=== PATIENT | female | born 1935 | race Caucasian/White ===

== ENCOUNTER 2021-11-01 11:02 | Inpatient (IN) ==
[2021-11-01] MEDS: SODIUM CHLORIDE 0.9% 500 ML IV SCH ×3 (12:29→17:58)
[2021-11-01 12:53] LABS: Basophils # (auto) 0.06 K/uL (0-0.2); Basophils % (auto) 0.9 %; Eosinophils # (auto) 0.09 K/uL (0-0.50); Eosinophils % (auto) 1.3 %; Hematocrit (blood only) 26.9 % (34.1-44.9); Hemoglobin 8.6 g/dl (12.0-16.0); Immature Granulocytes # (auto) 0.02 K/uL (0.00-0.02); Immature Granulocytes % (auto) 0.3 %; Lymphocytes % (auto) 16.1 %; Mean Corpuscular Hemoglobin 30.3 pg (25.0-34.0); Mean Corpuscular Volume 94.7 fL (80.0-100.0); Mean Platelet Volume 11.4 fL (9.4-12.3); Monocytes # (auto) 0.35 K/uL (0.24-0.82); Monocytes % (auto) 5.1 %; Neutrophils # (auto) 5.21 K/uL (1.4-6.5); Neutrophils % (auto) 76.3 %; Platelet Count 213 K/uL (130-400); RDW Coefficient of Variation 13.9 % (11.5-14.5); RDW Standard Deviation 47.2 fL (36.4-46.3); Red Blood Count 2.84 M/uL (3.93-5.22); White Blood Count 6.83 K/ul (4.8-10.8)
--- NOTE | 2021-11-01 13:09 | XRay Report ---
XR chest 1V portable HISTORY: 86 years-old Female dizziness acute dizziness COMPARISON: None TECHNIQUE: AP view of the chest FINDINGS: Cardiac silhouette is upper limits of normal in size. Prior median sternotomy with cardiac valvular p rosthesis. No pneumothorax, pleural effusion, airspace consolidation or overt pulmonary edema. Mild d iffuse interstitial coarsening is likely chronic. Degenerative changes of the shoulders and spine. IMPRESSION: No acute process. ACT 112: Negative or not required by law. The above report was generated using voice recognition software. It may contain grammatical, syntax o r spelling errors. Electronically signed by: Milind Mohan M.D. 11/01/2021 1:08 PM
[2021-11-01 13:10] LABS: Prothrombin Time 10.3 Seconds (9.0-12.0)
[2021-11-01 13:27] LABS: Appearance Urine Clear (Clear); Bacteria Urine Automated 4+ (Negative); Bilirubin Urine Negative (Negative); Blood Urine Negative (Negative); Cast Urine Automated 0 /lpf (0-5); Color Urine Yellow; Epithelial Cell Urine Auto >30 /lpf (0-5); Glucose Urine UA Negative (Negative); Ketones Urine Negative (Negative); Leukocyte Esterase Urine 1+ (Negative); Nitrite Urine Negative (Negative); Protein Urine Negative (Negative); RBC Urine Automated 0-4 /hpf (0-4); Specific Gravity Urine 1.013 (1.000-1.030); Urobilinogen Urine Negative (Negative); pH Urine 5.5 (4.5-7.5)
[2021-11-01 13:39] LABS: Albumin Globulin Ratio 1.4 (0.9-2); Albumin Level 3.7 gm/dl (3.4-5.0); BUN Creatinine Ratio 29.8 (10-20); Bilirubin,Total 0.3 mg/dl (0.2-1.0); Calcium 8.9 mg/dl (8.5-10.1); Creatinine Clr Calc Pharmacy 33.8 ml/min; Est GFR (African American) 55.9 ml/min; Est GFR (Non-African American) 48.3 ml/min; Globulin 2.7 gm/dl (2.5-4.0); Magnesium 2.1 mg/dl (1.7-2.4); Phosphorus 3.3 mg/dl (2.5-4.9); Potassium 3.9 mmol/L (3.5-5.1); Total Protein 6.4 gm/dl (6.0-8.3)
--- NOTE | 2021-11-01 13:43 | Electrocardiogram Report ---
Test Reason : Blood Pressure : / mmHG Vent. Rate : 089 BPM Atrial Rate : 089 BPM P-R Int : 174 ms QRS Dur : 068 ms QT Int : 354 ms P-R-T Axes : 039 -01 026 degrees QTc Int : 430 ms Sinus rhythm with occasional Premature ventricular complexes Otherwise normal ECG No previous ECGs available Confirmed by Castro Fall ([id number]) on 11/01/2021 1:42:55 PM Referred By: Stan Moya Confirmed By:Castro Fall
[2021-11-01] MEDS ORDERED: OPTIRAY 300 100mL IV ONE (14:43)
--- NOTE | 2021-11-01 14:59 | CT Scan Report ---
CT SCAN OF THE ABDOMEN AND PELVIS WITH IV CONTRAST CLINICAL HISTORY: Hematochezia. COMPARISON STUDY: No priors. TECHNIQUE: Following the IV administration of 94 cc of Optiray 300, CT scan of the abdomen and pelvi s is performed from the lung bases to the proximal femora. Images are reviewed in the axial, sagittal , and coronal planes. IV contrast was administered without complication. A dose lowering technique wa s utilized adhering to the principles of ALARA. CT DOSE: 301.45 mGy.cm FINDINGS: Lung bases: The patient is status post midline sternotomy and mitral valve surgery. The heart is mild ly enlarged and without pericardial effusion. Fibrotic change is noted at the lung bases. There is no superimposed airspace consolidation or pleural effusion. There are scattered calcified granulomas. T here is a tiny hiatal hernia. Liver: The contrast-enhanced liver is normal in size, contour, and attenuation. There is no intrahepa tic biliary ductal dilatation. The hepatic veins and portal veins are patent. There is a 2.2 cm left lobe cyst. Gallbladder: Unremarkable. Spleen: Normal in size and attenuation. Pancreas: Unremarkable. Adrenal glands: Unremarkable. Kidneys: The contrast enhanced kidneys demonstrate cortical atrophy and are without hydronephrosis. T he kidneys enhance symmetrically. Abdominal vasculature: The abdominal aorta is normal in course and caliber noting moderate to advance d atherosclerotic calcification. Bowel: There is mild colonic diverticulosis without CT evidence of acute diverticulitis. No bowel obs truction is seen. Mild fecal retention is seen throughout the colon. The appendix is not visualized. Peritoneum: There is no intraperitoneal free air or abdominal ascites. There is a small fat-containin g umbilical hernia. Lymphadenopathy: None. Pelvic viscera: The bladder is normal as visualized. The uterus is surgically absent. No adnexal lesi on is seen. Skeletal structures: The skeletal structures are osteopenic. There is moderate to advanced lumbosacra l spondylosis. No lytic or blastic lesions are seen. IMPRESSION: 1. No acute infectious or inflammatory findings are identified in the abdomen or pelvis. 2. Mild colonic diverticulosis without CT evidence of acute diverticulitis. 3. Mild cardiomegaly. 4. Additional findings as above. ACT 112: Negative or not required by law. Electronically signed by: Terry Nicholas M.D. 11/01/2021 2:58 PM
[2021-11-01] MEDS ORDERED: PANTOprazole 80 MG in DEXTROSE 5% 100 ML IV ONE (18:23)
[2021-11-01] MEDS ORDERED: PANTOPRAZOLE BOLUS/DRIP 1 EACH IV STA (18:23)
--- NOTE | 2021-11-01 18:39 | History & Physical Report ---
Date of Service November 01, 2021 Assessment & Plan (1) GIB (gastrointestinal bleeding): Plan: Bhavani is an 86-year-old female with a past medical history of heart failure with reduced ejection fraction, hyperlipidemia, hypertension, and CVA who presents with melena consistent with upper GI bleed. Records are from [facility], attempting to obtain from reconciliation. Unavailable to CM in ER. Med list obtained from patient. GI bleed Hemoglobin 8.6 on admission, no tachycardia and BP stable Patient does endorse progressive lightheadedness/presyncope over the weekend. Improved at bedside. Trend H&H every 8 hours Continue PPI gtt. 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 Type and screen ordered - Cautious fluid, 80cc/hr whil eNPO. 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 Denies history of DM No CKD DVT prophylaxis: SCDs, no pharmacal prophylaxis in the setting of bleeding Diet: N.p.o. pending GI eval Disposition: Medical telemetry monitoring while bleeding CODE STATUS: Full code (2) HTN (hypertension): (3) Aortic insufficiency: (4) CVA (cerebral vascular accident): (5) HFrEF (heart failure with reduced ejection fraction): History of Present Illness Primary Care Provider: ANNALEE ISBELL Bhavani is an 86-year-old female with a past medical history of hypertension, CVA on Plavix, and no known prior ulcers who presents with bright red blood per rectum with progression to melena suspicious for upper GI bleed had very loose BMs. Progressively over the next few days had worsening bright red blood in her bowel movements, and then BMs because dark red then black/tarry. Today BMs very dark brown again. She has had increasing lightheadedness/dizziness. No chest pain, no chest pressure. BP has been lower than normal without taking her BP medications. No shortness of breath. No abdominal pain, no nausea, vomiting. Has had palpitations/heart racing. NO hx of problems with ulcers/PUD/GERD. She does note that she has a sensitive stomach, and was previous on aspirin and was concerned about developing ulcers on either aspirin or her Plavix. On Plaavix for a stroke in 2018. No residual stroke deficits. Medications per patient: Bumex 1mg daily KCL 20meq qd Plavix 75mg QD MTP 12,5mg BID tartrate Colesevelam 625 3x/w entresto 49-51 BID Denies any NSAID use. Colonoscopy in 2006 and 2017, some polyps removed. Otherwise normal per patient open heart surgery in 2015 for a valve replacement Medical History: Reviewed Medications: Reviewed Surgical History: Reviewed Allergies: Reviewed Social History: Tobacco use, no regular alcohol use. Denies recreational drug use Code Status: Full code Past Med/Surg History Social History Smoking Status: Former smoker Preferred Language: Finnish Feels Safe at Home: Yes Review of Systems Review of Systems: All systems reviewed & are unremarkable except as noted in Subjective Physical Exam Physical Exam: General: A&Ox3. NAD. Cooperative. HEENT: Atraumatic, normocephalic. Pupils equal and reactive to light and accommodation. Vision hearing grossly intact Pulm: CTAB A&P. -wheezes, -rales, -rhonchi. Symmetrical chest rise. No increase in work of breathing. No respiratory distress. Cardiac: RRR, systolic murmur present. Radial pulses intact and symmetrical. Abdominal: Nontender, nondistended, soft. BS present. No epigastric tenderness Extremities: Warm, dry. Lower extremity pitting edema at the ankles, at baseline per patient. Sensation soft touch intact in hands and feet without asymmetry. 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 strength, elbow flexion, hip flexion, ankle dorsiflexion/plantar flexion 5/5 bilaterally without asymmetry Results & Data Results & Data ([facility]) Vital Signs (Past 12 Hours) Vital Signs Temp Pulse Pulse Resp BP BP Pulse Ox 11/01/21 17:39 72 20 129/64 98 11/01/21 17:00 75 20 132/72 98 11/01/21 15:00 79 20 135/76 99 11/01/21 13:20 79 20 126/62 98 11/01/21 11:41 37.1 C 92 H 26 H 140/85 97 O2 Del Method 11/01/21 17:39 Room Air 11/01/21 17:00 11/01/21 15:00 Room Air 11/01/21 13:20 Room Air 11/01/21 11:41 Room Air PG Care Time/CCT Total # of Minutes Spent Total Time Spent with Patient: Total time spent is greater than 50% in coordination of care (as documented) at patient's floor/unit and/or counseling patient: Coding Level of Care Code 24979 Initial Inpt Care Lvl 2 Diagnoses GIB (gastrointestinal bleeding) K92.2 HTN (hypertension) I10 Aortic insufficiency I35.1 CVA (cerebral vascular accident) I63.9 HFrEF (heart failure with reduced ejection fraction) I50.20
[2021-11-01] MEDS ORDERED: PANTOprazole 40 MG in DEXTROSE 5% 100 ML IV SCH (18:45)
--- NOTE | 2021-11-01 21:16 | Emergency Department Note ---
Impression & Plan GIB (gastrointestinal bleeding), Anemia, Dizziness ED Provider Note NAME: TRISTEN MITCHELL AGE: 86 SEX: F ARRIVES VIA: Walk-In INFORMANT: Patient ED PROVIDER(S): Dylon Bruce MD CHIEF COMPLAINT: Dizziness, GI bleeding PLAN: Disposition: Admit MEDICAL DECISION MAKING: The patient is a pleasant 86-year-old woman with a past medical history of CVA on Plavix who presents to the emergency department accompanied by her daughter for evaluation of concern for GI bleeding where she reports having bloody maroon-colored diarrhea that began on which continued and developed into black stool yesterday with dark brown stool today with associated g eneralized weakness and lightheadedness. Patient reports she saw her primary care doctor on Monday and was instructed to follow-up on Monday if worsening or not improved. The patient reports she stopped her Plavix after her bloody stool began. She denies any fevers, cough, congestion, nausea or vomiting. On arrival the patient is in no acute distress, afebrile stable vital signs. She appears clinically dry. Her abdomen is benign. Rectal exam did not demonstrate stool, melena or bleeding. WBC and platelets within normal limits. H/H 8.6/26.9 which is decreased from 13.3/40.1 from a year ago compared in the [facility]. Chemistry without metabolic acidosis. BUN is elevated at 31 however appears similar to prior values in the [facility]. Electrolytes without significant abnormality. LFTs unremarkable. High-sensitivity troponin 4.5 within normal limits. Lipase within normal limits. UA with 4+ bacteria however appears contaminated patient denies any urinary symptoms. COVID-19 RNA, PALAK test was negative. CT of the abdomen pelvis was performed and was negative for acute process. Given the patient's H/H does appear to be significantly less than prior values though no recent for comparison we did agree to proceed with admission for further evaluation. Case was discussed with Dr. Coffman, [facility] hospitalist, who will evaluate the patient for admission. Triage Nursing notes reviewed and agree them. Prior medical records reviewed Vital Signs: reviewed and remarkable for no significant abnormalities Differential diagnosis: Diverticulosis, AVM, coagulopathy, colitis, inflammatory bowel disease, malignancy, Alison-Viveros tear, esophagitis, peptic ulcer disease, variceal bleed, gastritis, epistaxis, fissure, hemorrhoids, as well as other pathologies. ER treatment provided: See below. Diagnostics interpreted by me: ECG: Sinus rhythm with occasional PVCs, 89 bpm, no ectopy, no overt ST elevation or depression, QTC 430, QRS 68. Cardiac Monitoring: An order for continuous cardiac monitoring was placed and demonstrated sinus rhythm with occasional PVCs, 89 bpm, no ectopy. Laboratory studies: See below Imaging studies: See below Consultation(s): Dr. Coffman, [facility] hospitalist HPI: The patient is a pleasant 86-year-old woman with a past medical history of CVA on Plavix who presents to the emergency department accompanied by her daughter for evaluation of concern for GI bleeding where she reports having bloody maroon-colored diarrhea that began on which continued and deve loped into black stool yesterday with dark brown stool today with associated generalized weakness and lightheadedness. Patient reports she saw her primary care doctor on Monday and was instructed to follow-up on Monday if worsening or not improved. The patient reports she stopped her Plavix after her bloody stool began. She denies any fevers, cough, congestion, nausea or vomiting. ROS: See above HPI for pertinent positives & negatives. A total of 10 systems reviewed and were otherwise negative. VITALS:See Below PHYSICAL EXAMINATION: GENERAL: Awake, alert, well-appearing, in no distress HENT: Normocephalic, atraumatic. Oropharynx with dry mucous membranes and otherwise unremarkable.. EYES: Normal conjunctiva. Sclera non-icteric. NECK: Supple. No nuchal rigidity. FROM. No JVD. RESPIRATORY: Clear to auscultation. CARDIAC: Regular rate, normal rhythm. Extremities warm and well perfused. Pulses equal. ABDOMEN: Soft, non-distended. No tenderness to palpation. No rebound or guarding. No masses. RECTAL: No stool, melena or blood. MUSCULOSKELETAL: Chest examination reveals no tenderness. The back is symmetric al on inspection without obvious abnormality. There is no CVA tenderness to palpation. No joint edema. LOWER EXTREMITIES: Calves are equal size bilaterally and non-tender. No edema. No discoloration. NEURO: Normal sensorium. No sensory or motor deficits noted. SKIN: No rash or jaundice noted. Dylon Bruce MD Past Med/Surg History Medical History Aortic insufficiency CVA (cerebral vascular accident) HFrEF (heart failure with reduced ejection fraction) HTN (hypertension) Family History Other Family history non-contributory Social History Smoking Status: Former smoker Preferred Language: Swedish Feels Safe at Home: Yes Allergies Allergies Allergy/AdvReac Type Severity Reaction Status Date / Time clindamycin Allergy Unknown Unverified 11/01/21 20:05 erythromycin base Allergy Unknown Unverified 11/01/21 20:06 [id number] Reductase Allergy Unknown Unverified 11/01/21 20:02 Inhibitor Home Meds Home Medications Medication Instructions Recorded Confirmed Lactobacillus acidophilus 10 10,000 mmu cells PO DAILY 11/01/21 11/01/21 billion cell capsule (Probiotic) bumetanide 1 mg tablet 1 mg PO DAILY 11/01/21 11/01/21 calcium carbonate 600 mg-vitamin 1 tab PO DAILY 11/01/21 11/01/21 D3 5 mcg (200 unit) tablet clopidogrel 75 mg tablet 75 mg PO DAILY 11/01/21 11/01/21 colesevelam 625 mg tablet 625 mg PO 3XWK 11/01/21 11/01/21 fish oil-dha-epa 1,200 mg-144 1 cap PO DAILY 11/01/21 11/01/21 mg-216 mg capsule metoprolol tartrate 25 mg tablet 25 mg PO DAILY 11/01/21 11/01/21 potassium chloride 20 mEq 20 meq PO DAILY 11/01/21 11/01/21 tablet,extended release sacubitril 24 mg-valsartan 26 mg 1 tab PO BID 11/01/21 11/01/21 tablet (Entresto) vit C 250 mg-vit E 90 mg-zinc 40 1 cap PO DAILY 11/01/21 11/01/21 mg-copper 1 [id number] capsule (PreserVision AREDS-2) Results & Data (ED) Vital Signs Vital Signs - 24 hr 11/01/21 11:41 11/01/21 13:20 11/01/21 15:00 Temperature 37.1 C Temperature Source Oral Pulse Rate 92 H Pulse Rate [Left Finger] 79 79 Pulse Rhythm Regular Pulse Rhythm [Left Finger] Regular Regular Pulse Strength Normal Pulse Strength [Left Finger] Normal Normal Respiratory Rate 26 H 20 20 Respiratory Effort / Characteristics Non-Labored Non-Labored Spontaneous Non-Labored Spontaneous Respiratory Depth Normal Normal Normal Respiratory Pattern Regular Regular Regular Blood Pressure 140/85 Blood Pressure [Left Arm] 126/62 135/76 Blood Pressure Mean 103 Blood Pressure Mean [Left Arm] 83 95 Blood Pressure Position Sitting Blood Pressure Position [Left Arm] Sitting Sitting Pulse Oximetry 97 98 99 Oxygen Delivery Method Room Air Room Air Room Air Sepsis Recent Fever Within 48 Hours No Sepsis New/Unexplained Change in Mental Status N/A Sepsis Action Taken by Nursing No Action Required 11/01/21 17:00 11/01/21 17:39 Temperature Temperature Source Pulse Rate Pulse Rate [Left Finger] 75 72 Pulse Rhythm Pulse Rhythm [Left Finger] Regular Pulse Strength Pulse Strength [Left Finger] Normal Respiratory Rate 20 20 Respiratory Effort / Characteristics Non-Labored Spontaneous Respiratory Depth Normal Respiratory Pattern Regular Blood Pressure Blood Pressure [Left Arm] 132/72 129/64 Blood Pressure Mean Blood Pressure Mean [Left Arm] 92 85 Blood Pressure Position Blood Pressure Position [Left Arm] Sitting Sitting Pulse Oximetry 98 98 Oxygen Delivery Method Room Air Sepsis Recent Fever Within 48 Hours Sepsis New/Unexplained Change in Mental Status Sepsis Action Taken by Nursing Laboratory Data Attestation: I reviewed the patient's lab results. Result diagrams: 11/01/21 23:10 11/01/21 12:00 Lab Results 11/01/21 11/01/21 11/01/21 Range/Units 12:00 12:00 12:00 WBC 6.83 (4.8-10.8) K/ul RBC 2.84 L (3.93-5.22) M/uL Hgb 8.6 L (12.0-16.0) g/dl Hct 26.9 L (34.1-44.9) % MCV 94.7 (80.0-100.0) fL MCH 30.3 (25.0-34.0) pg MCHC 32.0 (32.0-36.0) g/dL RDW Std Deviation 47.2 H (36.4-46.3) fL RDW Coeff of David 13.9 (11.5-14.5) % Plt Count 213 (130-400) K/uL MPV 11.4 (9.4-12.3) fL Immature Gran % (Auto) 0.3 % Neut % (Auto) 76.3 % Lymph % (Auto) 16.1 % [place] % (Auto) 5.1 % Eos % (Auto) 1.3 % Baso % (Auto) 0.9 % Neut # (Auto) 5.21 (1.4-6.5) K/uL Lymph # (Auto) 1.10 L (1.2-3.4) K/uL [place] # (Auto) 0.35 (0.24-0.82) K/uL Eos # (Auto) 0.09 (0-0.50) K/uL Baso # (Auto) 0.06 (0-0.2) K/uL Immature Gran # (Auto) 0.02 (0.00-0.02) K/uL PT 10.3 (9.0-12.0) Seconds INR 1.0 (0.9-1.1) Sodium 137 (136-145) mmol/L Potassium 3.9 (3.5-5.1) mmol/L Chloride 106 (98-107) mmol/L Carbon Dioxide 23 (21-32) mmol/L Anion Gap 8 (3-11) BUN 31 H (6-23) mg/dl Creatinine 1.04 (0.6-1.2) mg/dl Est Cr Clr Drug Dosing 33.8 ml/min Est GFR ( Amer) 55.9 ml/min Est GFR (Non-Af Amer) 48.3 ml/min BUN/Creatinine Ratio 29.8 H (10-20) Glucose 111 H (70-99(Fasting)) mg/dl Calcium 8.9 (8.5-10.1) mg/dl Phosphorus 3.3 (2.5-4.9) mg/dl Magnesium 2.1 (1.7-2.4) mg/dl Total Bilirubin 0.3 (0.2-1.0) mg/dl AST 13 (13-39) U/L ALT 9 (7-52) U/L Alkaline Phosphatase 48 (34-104) U/L Troponin I High Sens (0-14) pg/ml Total Protein 6.4 (6.0-8.3) gm/dl Albumin 3.7 (3.4-5.0) gm/dl Globulin 2.7 (2.5-4.0) gm/dl Albumin/Globulin Ratio 1.4 (0.9-2) Lipase 43 (11-82) U/L Urine Color Urine Appearance (Clear) Urine pH (4.5-7.5) Ur Specific [place] (1.000-1.030) Urine Protein (Negative) Urine Glucose (UA) (Negative) Urine Ketones (Negative) Urine Blood (Negative) Urine Nitrite (Negative) Urine Bilirubin (Negative) Urine Urobilinogen (Negative) Ur Leukocyte Esterase (Negative) Urine WBC (Auto) (0-5) /hpf Urine RBC (Auto) (0-4) /hpf U Hyaline Cast (Auto) (0-5) /lpf U Epithel Cells (Auto) (0-5) /lpf Urine Bacteria (Auto) (Negative) SARS-CoV-2, RNA, NAAT (NEGATIVE) 11/01/21 11/01/21 11/01/21 Range/Units 12:00 12:30 13:05 WBC (4.8-10.8) K/ul RBC (3.93-5.22) M/uL Hgb (12.0-16.0) g/dl Hct (34.1-44.9) % MCV (80.0-100.0) fL MCH (25.0-34.0) pg MCHC (32.0-36.0) g/dL RDW Std Deviation (36.4-46.3) fL RDW Coeff of David (11.5-14.5) % Plt Count (130-400) K/uL MPV (9.4-12.3) fL Immature Gran % (Auto) % Neut % (Auto) % Lymph % (Auto) % [place] % (Auto) % Eos % (Auto) % Baso % (Auto) % Neut # (Auto) (1.4-6.5) K/uL Lymph # (Auto) (1.2-3.4) K/uL [place] # (Auto) (0.24-0.82) K/uL Eos # (Auto) (0-0.50) K/uL Baso # (Auto) (0-0.2) K/uL Immature Gran # (Auto) (0.00-0.02) K/uL PT (9.0-12.0) Seconds INR (0.9-1.1) Sodium (136-145) mmol/L Potassium (3.5-5.1) mmol/L Chloride (98-107) mmol/L Carbon Dioxide (21-32) mmol/L Anion Gap (3-11) BUN (6-23) mg/dl Creatinine (0.6-1.2) mg/dl Est Cr Clr Drug Dosing ml/min Est GFR ( Amer) ml/min Est GFR (Non-Af Amer) ml/min BUN/Creatinine Ratio (10-20) Glucose (70-99(Fasting)) mg/dl Calcium (8.5-10.1) mg/dl Phosphorus (2.5-4.9) mg/dl Magnesium (1.7-2.4) mg/dl Total Bilirubin (0.2-1.0) mg/dl AST (13-39) U/L ALT (7-52) U/L Alkaline Phosphatase (34-104) U/L Troponin I High Sens 4.5 (0-14) pg/ml Total Protein (6.0-8.3) gm/dl Albumin (3.4-5.0) gm/dl Globulin (2.5-4.0) gm/dl Albumin/Globulin Ratio (0.9-2) Lipase (11-82) U/L Urine Color Yellow Urine Appearance Clear (Clear) Urine pH 5.5 (4.5-7.5) Ur Specific [place] 1.013 (1.000-1.030) Urine Protein Negative (Negative) Urine Glucose (UA) Negative (Negative) Urine Ketones Negative (Negative) Urine Blood Negative (Negative) Urine Nitrite Negative (Negative) Urine Bilirubin Negative (Negative) Urine Urobilinogen Negative (Negative) Ur Leukocyte Esterase 1+ H (Negative) Urine WBC (Auto) 1-5 (0-5) /hpf Urine RBC (Auto) 0-4 (0-4) /hpf U Hyaline Cast (Auto) 0 (0-5) /lpf U Epithel Cells (Auto) >30 H (0-5) /lpf Urine Bacteria (Auto) 4+ H (Negative) SARS-CoV-2, RNA, NAAT NEGATIVE (NEGATIVE) Administered Medications Discontinued Medications Sodium Chloride (Nss) 500 mls @ 125 mls/hr IV .Q4H [facility] Stop: 12/01/21 12:14 Last Infusion: 11/01/21 19:02 Dose: 0 mls/hr Documented By: Admin: 11/01/21 17:58 Dose: Not Given Documented By: Admin: 11/01/21 17:57 Dose: Not Given Documented By: Admin: 11/01/21 12:29 Dose: 125 mls/hr Documented By: JOSSE Pantoprazole Sodium (Protonix Bolus/Drip) 0 mls @ 1 mls/hr IV ONE STA Stop: 11/01/21 18:24 Last Admin: 11/01/21 20:02 Dose: Not Given Documented By: JORGE A Pantoprazole Sodium 40 mg/ (Dextrose) 100 mls @ 20 mls/hr IV Q5H TASHA Stop: 12/01/21 18:44 Last Admin: 11/01/21 19:06 Dose: 8 mg/hr, 20 mls/hr Documented By: BURT Pantoprazole Sodium 80 mg/ (Dextrose) 120 mls @ 400 mls/hr IV NOW ONE Stop: 11/01/21 18:40 Last Infusion: 11/01/21 19:02 Dose: 0 mls/hr Documented By: Admin: 11/01/21 18:46 Dose: 400 mls/hr Documented By: BURT Ioversol (Optiray 300 100ml) 94 ml IV ONCE ONE Stop: 11/01/21 14:44 Last Admin: 11/01/21 14:44 Dose: 94 ml Documented By: NISREEN Imaging Data Radiologist's Impression: Abdomen/Pelvis CT 11/01/21 12:19 CT SCAN OF THE ABDOMEN AND PELVIS WITH IV CONTRAST CLINICAL HISTORY: Hematochezia. COMPARISON STUDY: No priors. TECHNIQUE: Following the IV administration of 94 cc of Optiray 300, CT scan of the abdomen and pelvis is performed from the lung bases to the proximal femora. Images are reviewed in the axial, sagittal, and coronal planes. IV contrast was administered without complication. A dose lowering technique was utilized adhering to the principles of ALARA. CT DOSE: 301.45 mGy.cm FINDINGS: Lung bases: The patient is status post midline sternotomy and mitral valve surgery. The heart is mildly enlarged and without pericardial effusion. Fibrotic change is noted at the lung bases. There is no superimposed airspace consolidation or pleural effusion. There are scattered calcified granulomas. There is a tiny hiatal hernia. Liver: The contrast-enhanced liver is normal in size, contour, and attenuation. There is no intrahepatic biliary ductal dilatation. The hepatic veins and portal veins are patent. There is a 2.2 cm left lobe cyst. Gallbladder: Unremarkable. Spleen: Normal in size and attenuation. Pancreas: Unremarkable. Adrenal glands: Unremarkable. Kidneys: The contrast enhanced kidneys demonstrate cortical atrophy and are without hydronephrosis. The kidneys enhance symmetrically. Abdominal vasculature: The abdominal aorta is normal in course and caliber noting moderate to advanced atherosclerotic calcification. Bowel: There is mild colonic diverticulosis without CT evidence of acute diverticulitis. No bowel obstruction is seen. Mild fecal retention is seen throughout the colon. The appendix is not visualized. Peritoneum: There is no intraperitoneal free air or abdominal ascites. There is a small fat-containing umbilical hernia. Lymphadenopathy: None. Pelvic viscera: The bladder is normal as visualized. The uterus is surgically absent. No adnexal lesion is seen. Skeletal structures: The skeletal structures are osteopenic. There is moderate to advanced lumbosacral spondylosis. No lytic or blastic lesions are seen. IMPRESSION: 1. No acute infectious or inflammatory findings are identified in the abdomen or pelvis. 2. Mild colonic diverticulosis without CT evidence of acute diverticulitis. 3. Mild cardiomegaly. 4. Additional findings as above. ACT 112: Negative or not required by law. Electronically signed by: Terry Nicholas M.D. 11/01/2021 2:58 PM Chest X-Ray 11/01/21 12:25 XR chest 1V portable HISTORY: 86 years-old Female dizziness acute dizziness COMPARISON: None TECHNIQUE: AP view of the chest FINDINGS: Cardiac silhouette is upper limits of normal in size. Prior median sternotomy with cardiac valvular prosthesis. No pneumothorax, pleural effusion, airspace consolidation or overt pulmonary edema. Mild diffuse interstitial coarsening is likely chronic. Degenerative changes of the shoulders and spine. IMPRESSION: No acute process. ACT 112: Negative or not required by law. The above report was generated using voice recognition software. It may contain grammatical, syntax or spelling errors. Electronically signed by: Milind Mohan M.D. 11/01/2021 1:08 PM Discharge Plan Visit Data Chief Complaint: Rectal Bleed Stated Complaint: RECTAL BLEEDING, DIZZINESS, REF BY DR ED Provider: Dylon Bruce Discharge Problem: GIB (gastrointestinal bleeding), Anemia, Dizziness Patient Disposition: Admitted As Inpatient Discharge Instructions Interventions: ED Discharge Assessment Last Done: 11/01/21 22:02
[2021-11-01] MEDS ORDERED: ONDANSETRON INJ 2 MG/ML 2 ML VIAL IV PRN (22:41)
[2021-11-01 23:23] LABS: Hematocrit (blood only) 25.1 % (34.1-44.9); Hemoglobin 7.9 g/dl (12.0-16.0)
[2021-11-02] MEDS: PANTOprazole 40 MG in DEXTROSE 5% 100 ML IV SCH ×5 (00:57→21:20)
[2021-11-02] MEDS: NSS + 20MEQ KCL 20 MEQ/1,000 ML BAG IV SCH ×2 (00:57→20:52)
[2021-11-02 06:28] LABS: Hematocrit (blood only) 21.2 % (34.1-44.9); Hemoglobin 6.8 g/dl (12.0-16.0); Mean Corpuscular Hemoglobin 30.1 pg (25.0-34.0); Mean Corpuscular Hgb Conc 32.1 g/dL (32.0-36.0); Mean Corpuscular Volume 93.8 fL (80.0-100.0); Mean Platelet Volume 10.9 fL (9.4-12.3); Platelet Count 165 K/uL (130-400); RDW Coefficient of Variation 14.1 % (11.5-14.5); RDW Standard Deviation 47.7 fL (36.4-46.3); Red Blood Count 2.26 M/uL (3.93-5.22); White Blood Count 5.11 K/ul (4.8-10.8)
[2021-11-02 06:31] LABS: Calcium 7.7 mg/dl (8.5-10.1); Creatinine Clr Calc Pharmacy 36.6 ml/min; Est GFR (African American) 61.6 ml/min; Est GFR (Non-African American) 53.2 ml/min; Potassium 4.2 mmol/L (3.5-5.1)
[2021-11-02 06:39] LABS: Basophils # (auto) 0.04 K/uL (0-0.2); Basophils % (auto) 0.8 %; Eosinophils # (auto) 0.19 K/uL (0-0.50); Eosinophils % (auto) 3.7 %; Immature Granulocytes # (auto) 0.02 K/uL (0.00-0.02); Immature Granulocytes % (auto) 0.4 %; Lymphocytes # (auto) 1.15 K/uL (1.2-3.4); Lymphocytes % (auto) 22.5 %; Monocytes # (auto) 0.27 K/uL (0.24-0.82); Monocytes % (auto) 5.3 %; Neutrophils # (auto) 3.44 K/uL (1.4-6.5); Neutrophils % (auto) 67.3 %; RBC Morphology Unremarkable
[2021-11-02] MEDS ORDERED: SODIUM CHLORIDE 0.9% 1000ML 500 ML IV ONE (07:12)
--- NOTE | 2021-11-02 09:40 | Gastrointestinal Consultation ---
Date of Consultation November 02, 2021 Assessment & Plan (1) GIB (gastrointestinal bleeding): Discussed case with Dr. Saravia who advised on plan. - Will set the patient up for EGD for today to evaluate and assess. - continue protonix drip. - keep NPO - further recommendations to follow after EGD. Supervising Physician Co-Signing Physician Notes I personally evaluated the patient and agree with the findings as documented by FABY Hernandez Exam: Constitutional: WD/WN, vitals as above General: EOM intact bilaterally Neck: normal visual inspection Respiratory: normal respiratory effort, lungs clear to auscultation Cardiovascular: RRR, no murmur, no edema Gastrointestinal: abdomennormal to inspection, nondistended, soft, nontender, no hepatosplenomegaly Musculoskeletal: no cyanosis, head normal to inspection Skin: no rashes, warm and dry Neurologic: moves all extremities Psychiatric: A and O x3, euthymic affect Proceed with EGD. risks/benefits and procedure discussed with patient, who agrees to proceed History of Present Illness Reason for Consultation: GI bleed Requesting Physician: Dr. Alexander Navas Attending Physician: Margarito Mcneill MD History of Present Illness Patient is an 86 year old female with a past medical history of hypertension, CVA 2018 on Plavix who presented to ED yesterday with complaint of melena. She admits that her symptoms started 5 days ago when she noticed a change in her bowels which started to look maroon in nature. At that point she stopped her plavix as she was worried about bleeding. Over the next few days her stools bec lisa black and she admits to having nocturnal bowel movements which is unusual for her. She tells me stools are still very dark. She admits what brought her to the ED was that she was getting progressively more weak. Hgb on admission was 7.9 and fell to 6.8 today. She had unremarkable CT A/P. she admit to heartburn as an outpatient but tells me this is infrequent. uses tums / gas x as needed which controls symptoms. she denie sany nsaid use. Patient denies any current issues with nausea, vomiting, dysphagia, abdominal pain, unintentional weight loss. She typically follows with [facility] as an outpatient for GI care, but she admits she has not had an EGD since 2006 which per patient shown gastritis. She admits last colonoscopy was in 2017 and she did have polyps but is not sure of what type. Procedure were last done in [place] per patient. Allergies Allergy/AdvReac Type Severity Reaction Status Date / Time clindamycin Allergy Unknown Unverified 11/01/21 20:05 erythromycin base Allergy Unknown Unverified 11/01/21 20:06 [id number]-YOA-BxS Reductase Allergy Unknown Unverified 11/01/21 20:02 Inhibitor Home Medications Medication Instructions Recorded Confirmed Type Lactobacillus acidophilus 10 10,000 mmu cells PO DAILY 11/01/21 11/01/21 History billion cell capsule (Probiotic) bumetanide 1 mg tablet 1 mg PO DAILY 11/01/21 11/01/21 History calcium carbonate 600 mg-vitamin 1 tab PO DAILY 11/01/21 11/01/21 History D3 5 mcg (200 unit) tablet clopidogrel 75 mg tablet 75 mg PO DAILY 11/01/21 11/01/21 History colesevelam 625 mg tablet 625 mg PO 3XWK 11/01/21 11/01/21 History fish oil-dha-epa 1,200 mg-144 1 cap PO DAILY 11/01/21 11/01/21 History mg-216 mg capsule metoprolol tartrate 25 mg tablet 25 mg PO DAILY 11/01/21 11/01/21 History potassium chloride 20 mEq 20 meq PO DAILY 11/01/21 11/01/21 History tablet,extended release sacubitril 24 mg-valsartan 26 mg 1 tab PO BID 11/01/21 11/01/21 History tablet (Entresto) vit C 250 mg-vit E 90 mg-zinc 40 1 cap PO DAILY 11/01/21 11/01/21 History mg-copper 1 [id number] capsule (PreserVision AREDS-2) Patient History Medical History Aortic insufficiency CVA (cerebral vascular accident) HFrEF (heart failure with reduced ejection fraction) HTN (hypertension) Family History Other Family history non-contributory Social History Smoking Status: Never smoker Cigarettes Per Day: socially when she was younger per her report; Second Hand Exposure: Yes; Do You Dip or Chew Tobacco: No; Tobacco Cessation Education Requested by Patient: Yes Hx Alcohol Use: No Hx Substance Use: No Preferred Language: Hong Konger Communication Ability: Effective Pantry Goods Maker Required: No Beliefs That Will Affect Care: Rastafari Current Living Situation: Alone and Family Other Information That Helps Us Care for You: No Feels Safe at Home: Yes Safety Concerns: Feels Safe At This Time Assistive Devices: Oxygen - Continuous and Walker Assistive Devices Comment: tatianna Review of Systems Review of Systems: All systems reviewed & are unremarkable except as noted in HPI & below Constitutional: + fatigue and + weakness Neurologic: + unsteadiness and + generalized weakness Physical Exam Constitutional: WD/WN, vitals as above Respiratory: normal respiratory effort, lungs clear to auscultation Cardiovascular: RRR, no murmur, no edema Gastrointestinal (Abdomen): normal bowel sounds, soft, nontender, no hepatosplenomegaly Skin: no rashes, warm and dry Psychiatric: Orientation: alert and oriented x 3 Affect: euthymic affect Results & Data ([facility]) Vital Signs (Past 12 Hours) Vital Signs Temp Pulse Pulse Resp BP BP Pulse Ox 11/02/21 03:40 75 16 95/53 L 95 11/02/21 07:00 36.6 C 74 18 97/63 L 100 11/02/21 07:09 70 11/01/21 23:05 100 H 11/01/21 23:05 36.8 C 87 18 103/52 L 97 11/02/21 03:07 36.4 C L 80 18 68/55 L 98 11/01/21 22:00 79 15 98 11/01/21 22:00 130/63 11/01/21 22:02 O2 Del Method 11/02/21 03:40 Room Air 11/02/21 07:00 Room Air 11/02/21 07:09 11/01/21 23:05 11/01/21 23:05 Room Air 11/02/21 03:07 Room Air 11/01/21 22:00 Room Air 11/01/21 22:00 11/01/21 22:02 Room Air Diagnostic Findings CT SCAN OF THE ABDOMEN AND PELVIS WITH IV CONTRAST 11/01/21 CLINICAL HISTORY: Hematochezia. COMPARISON STUDY: No priors. TECHNIQUE: Following the IV administration of 94 cc of Optiray 300, CT scan of the abdomen and pelvis is performed from the lung bases to the proximal femora. Images are reviewed in the axial, sagittal, and coronal planes. IV contrast was administered without complication. A dose lowering technique was utilized adhering to the principles of ALARA. CT DOSE: 301.45 mGy.cm FINDINGS: Lung bases: The patient is status post midline sternotomy and mitral valve surgery. The heart is mildly enlarged and without pericardial effusion. Fibrotic change is noted at the lung bases. There is no superimposed airspace con solidation or pleural effusion. There are scattered calcified granulomas. There is a tiny hiatal hernia. Liver: The contrast-enhanced liver is normal in size, contour, and attenuation. There is no intrahepatic biliary ductal dilatation. The hepatic veins and portal veins are patent. There is a 2.2 cm left lobe cyst. Gallbladder: Unremarkable. Spleen: Normal in size and attenuation. Pancreas: Unremarkable. Adrenal glands: Unremarkable. Kidneys: The contrast enhanced kidneys demonstrate cortical atrophy and are without hydronephrosis. The kidneys enhance symmetrically. Abdominal vasculature: The abdominal aorta is normal in course and caliber noting moderate to advanced atherosclerotic calcification. Bowel: There is mild colonic diverticulosis without CT evidence of acute diverticulitis. No bowel obstruction is seen. Mild fecal retention is seen throughout the colon. The appendix is not visualized. Peritoneum: There is no intraperitoneal free air or abdominal ascites. There is a small fat-containing umbilical hernia. Lymphadenopathy: None. Pelvic viscera: The bladder is normal as visualized. The uterus is surgically absent. No adnexal lesion is seen. Skeletal structures: The skeletal structures are osteopenic. There is moderate to advanced lumbosacral spondylosis. No lytic or blastic lesions are seen. IMPRESSION: 1. No acute infectious or inflammatory findings are identified in the abdomen or pelvis. 2. Mild colonic diverticulosis without CT evidence of acute diverticulitis. 3. Mild cardiomegaly. 4. Additional findings as above. PG Care Time/CCT Total # of Minutes Spent Total Time Spent with Patient: Total time spent is greater than 50% in coordination of care (as documented) at patient's floor/unit and/or counseling patient: Coding Level of Care Code 31324 Initial Inpt Care Lvl 3 Diagnoses GIB (gastrointestinal bleeding) K92.2
[2021-11-02] MEDS ORDERED: FUROSEMIDE INJ 20 MG/2 ML VIAL IV ONE ×2 (11:02→15:52)
[2021-11-02] MEDS ORDERED: SODIUM CHLORIDE 0.9% 250 ML IV PRN ×2 (11:02→11:49)
[2021-11-02 11:25] LABS: Adenovirus F 40/41 PCR Not Detected (NotDetected); Astrovirus PCR Not Detected (NotDetected); Campylobacter PCR Not Detected (NotDetected); Clostridium diff Toxin A/B PCR Not Detected (NotDetected); Cryptosporidium PCR Not Detected (NotDetected); Cyclospora cayetanensis PCR Not Detected (NotDetected); Entamoeba histolytica PCR Not Detected (NotDetected); Enteroaggregative E.coli(EAEC) Not Detected (NotDetected); Enteropathogenic E.coli (EPEC) Not Detected (NotDetected); Enterotoxigenic E.coli (ETEC) Not Detected (NotDetected); Giardia lamblia PCR Not Detected (NotDetected); Norovirus GI/GII PCR Not Detected (NotDetected); Plesiomonas shigelloides PCR Not Detected (NotDetected); Rotavirus A PCR Not Detected (NotDetected); Salmonella PCR Not Detected (NotDetected); Sapovirus PCR Not Detected (NotDetected); Shiga-like Toxin E.coli (STEC) Not Detected (NotDetected); Shigella/Enteroinvasive E.coli Not Detected (NotDetected); Vibrio cholerae PCR Not Detected (NotDetected); Vibrio species PCR Not Detected (NotDetected); Yersinia enterocolitica PCR Not Detected (NotDetected)
--- NOTE | 2021-11-02 14:17 | Anesthesiology Consultation ---
Date of Service November 02, 2021 Assessment & Plan Chart Review Chart Review: Acceptable Risk for Surgery Has first of 2 units of pRBCs running Consults Requested none ASA ASA3 Proposed Anesthesia Anesthesia Type: MAC Risk / Benefits Reviewed With: PT / POA / Parent / Guardian, Accepts Plan and Informed Consent Obtained History Surgery Operation Date: 11/02/21 16:15 Proposed Procedures p Esophagogastroduodenoscopy Dr. Saravia - Kalen Saravia MD Height/Weight Height: 5 ft 1 in Weight: 67.1 kg Allergies Allergy/AdvReac Type Severity Reaction Status Date / Time clindamycin Allergy Unknown Unverified 11/01/21 20:05 erythromycin base Allergy Unknown Unverified 11/01/21 20:06 Cueaoxa-ZDB-NfY Reductase Allergy Unknown Unverified 11/01/21 20:02 Inhibitor Medications Home Medications Medication Instructions Recorded Confirmed Last Taken Lactobacillus acidophilus 10 10,000 mmu cells PO DAILY 11/01/21 11/01/21 Unknown billion cell capsule (Probiotic) bumetanide 1 mg tablet 1 mg PO DAILY 11/01/21 11/01/21 Unknown calcium carbonate 600 mg-vitamin 1 tab PO DAILY 11/01/21 11/01/21 Unknown D3 5 mcg (200 unit) tablet clopidogrel 75 mg tablet 75 mg PO DAILY 11/01/21 11/01/21 Unknown colesevelam 625 mg tablet 625 mg PO 3XWK 11/01/21 11/01/21 Unknown fish oil-dha-epa 1,200 mg-144 1 cap PO DAILY 11/01/21 11/01/21 Unknown mg-216 mg capsule metoprolol tartrate 25 mg tablet 25 mg PO DAILY 11/01/21 11/01/21 Unknown potassium chloride 20 mEq 20 meq PO DAILY 11/01/21 11/01/21 Unknown tablet,extended release sacubitril 24 mg-valsartan 26 mg 1 tab PO BID 11/01/21 11/01/21 Unknown tablet (Entresto) vit C 250 mg-vit E 90 mg-zinc 40 1 cap PO DAILY 11/01/21 11/01/21 Unknown mg-copper 1 [id number] capsule (PreserVision AREDS-2) Active Medications Generic Name Dose Route Start Last Admin Trade Name Freq PRN Reason Stop Dose Admin Pantoprazole Sodium 40 mg/ 100 mls @ 20 mls/hr 11/02/21 00:00 11/02/21 10:26 Dextrose IV 12/02/21 00:00 8 mg/hr Q5H TASHA 20 mls/hr Administration 8 MG/HR Potassium Chloride/Sodium Chloride 20 meq in 1,000 mls @ 80 mls/hr 11/01/21 23:15 11/02/21 13:44 Normal Saline W/20 Meq Kcl IV 12/01/21 23:14 Infused .[id number] TASHA Infusion NPO Date Last Intake of Fluids: 11/01/21 Time Last Intake of Fluids: 23:59 Date Last Intake of Solids: 11/01/21 Time Last Intake of Solids: 23:59 Past Medical History Medical History Aortic insufficiency CVA (cerebral vascular accident) HFrEF (heart failure with reduced ejection fraction) HTN (hypertension) Exercise / Class Metabolic Activity III < 4 Walking/Shop/Light housework Past Family History Family History Other Family history non-contributory Past Anesthesia History No Hx of Anesthesia Complications and No Family Hx of Anesthesia Complications History of PONV No Hx of PONV and History of PONV Social History Smoking Status: Never smoker tobacco type: cigarettes and e-cigarettes Smoking cigarettes per day: socially when she was younger per her report Do You Dip or Chew Tobacco: No Hx Alcohol Use: No alcohol intake frequency: 0-2 drinks per day Hx Substance Use: No substance use type: does not use Last Used Substance Other:: none Review of Systems Constitutional: as per Subjective / HPI and + fatigue Ear, Nose, Mouth, Throat: as per Subjective / HPI Respiratory: + dyspnea on exertion Cardiovascular: as per Subjective / HPI Gastrointestinal: + diarrhea/loose stools, + blood in stools and + melena Genitourinary (Female): as per Subjective / HPI Musculoskeletal: as per Subjective / HPI Integumentary: as per Subjective / HPI Neurologic: as per Subjective / HPI Psychiatric: as per Subjective / HPI Endocrine: as per Subjective / HPI blood in stool/melena Allergy / Immunological: as per Subjective / HPI Physical Exam Vital Signs Last Vital Signs Temp 36.4 C L 11/02/21 13:15 Pulse 82 11/02/21 13:15 Resp 16 11/02/21 13:15 BP 142/85 H 11/02/21 13:15 Pulse Ox 100 11/02/21 07:00 O2 Del Method 11/02/21 07:00 ENMT Mouth: no TMJ abnormality Thyromental Distance: > or= 3.5 Finger Breadths Mallampati Class: II Neck normal visual inspection Respiratory normal respiratory effort Cardiovascular Rate/Rhythm: regular rate and regular rhythm Musculoskeletal Spine: normal cervical ROM Extremities: extremities normal to inspection Neurologic moves all extremities Psychiatric Orientation: alert and oriented x 3 Testing Laboratory Results 11/02/21 05:55 11/02/21 05:55 PT 10.3 Seconds (9.0-12.0) 11/01/21 12:00 INR 1.0 (0.9-1.1) 11/01/21 12:00 Urine Color Yellow 11/01/21 13:05 Urine Appearance Clear (Clear) 11/01/21 13:05 Urine pH 5.5 (4.5-7.5) 11/01/21 13:05 Ur Specific [place] 1.013 (1.000-1.030) 11/01/21 13:05 Urine Protein Negative (Negative) 11/01/21 13:05 Urine Glucose (UA) Negative (Negative) 11/01/21 13:05 Urine Ketones Negative (Negative) 11/01/21 13:05 Urine Nitrite Negative (Negative) 11/01/21 13:05 Ur Leukocyte Esterase 1+ (Negative) H 11/01/21 13:05 Urine WBC (Auto) 1-5 /hpf (0-5) 11/01/21 13:05 Urine RBC (Auto) 0-4 /hpf (0-4) 11/01/21 13:05 U Hyaline Cast (Auto) 0 /lpf (0-5) 11/01/21 13:05 U Epithel Cells (Auto) >30 /lpf (0-5) H 11/01/21 13:05 Urine Bacteria (Auto) 4+ (Negative) H 11/01/21 13:05 Blood Type O Positive 11/01/21 19:15 Antibody Screen NEGATIVE 11/01/21 19:15 11/01/21 13:05 Urine Culture - Preliminary Urine,Clean Catch Gram negative bacilli
[2021-11-02] MEDS ORDERED: LIDOCAINE 2% MPF LOCAL 5 ML VIAL INFIL ONE (14:26)
[2021-11-02] MEDS ORDERED: PROPOFOL IV EMULSION 10 MG/ML 20 ML VIAL IV ONE (14:26)
--- NOTE | 2021-11-02 15:25 | GI REPORT ---
Patient Name: Bhavani Vizcaino Procedure Date: 11/02/2021 2:32 PM Date of : 1935 Admit Type: Inpatient Age: 86 Gender: Female Attending MD: Kalen Saravia MD Procedure: Upper GI endoscopy Providers: Kalen Saravia MD Referring MD: Margarito Mcneill Indications: Hematochezia Medicines: Monitored Anesthesia Care Complications: No immediate complications. Estimated blood loss: None. Estimated Blood Loss: Estimated blood loss: none. Procedure: Pre-Anesthesia Assessment: - Prior Anticoagulants: The patient has taken no previous anticoagulant or antiplatelet agents. - ASA Grade Assessment: II - A patient with mild systemic disease. After obtaining informed consent, the endoscope was passed under direct vision. Throughout the procedure, the patient's blood pressure, pulse, and oxygen saturations were monitored continuously. The Endoscope was introduced through the mouth, and advanced to the second part of duodenum. The upper GI endoscopy was accomplished without difficulty. The patient tolerated the procedure well. Findings: Mildly severe esophagitis with no bleeding was found in the distal esophagus. The entire examined stomach was normal. The duodenal bulb and second portion of the duodenum were normal. A small hiatal hernia was present. Impression: - Mildly severe reflux esophagitis. - Normal stomach. - Normal duodenal bulb and second portion of the duodenum. - No specimens collected. Recommendation: - Return patient to hospital [facility] for ongoing care. - Clear liquid diet today. -suspect a diverticular bleed, these usually resolve on their own, would monitor supportively at this time and trend H/H, avoid NSAIDS -will continue to follow along with you Kalen Saravia MD 11/02/2021 3:24:32 PM This report has been signed electronically. Note Initiated On: 11/02/2021 2:32 PM Number of Addenda: 0 I attest to the content of the Intraoperative Record and orders documented therein, exceptions below {[id number]}
--- NOTE | 2021-11-02 16:06 | Anesthesiology Progress Note ---
Date of Service November 02, 2021 Anesthesia Post Procedure Vital Signs Vital Signs: Temp Pulse Pulse Resp BP BP Pulse Ox 11/02/21 15:37 97.9 F 79 18 98/62 L 99 11/02/21 15:19 76 18 98/51 L 95 11/02/21 14:50 97.7 F 82 16 133/82 11/02/21 14:20 99.0 F 87 16 133/85 11/02/21 14:02 98.1 F 80 16 134/76 99 11/02/21 13:15 97.5 F L 82 16 142/85 H 11/02/21 03:40 75 16 95/53 L 95 11/02/21 07:00 97.9 F 74 18 97/63 L 100 11/02/21 07:09 70 11/01/21 23:05 100 H 11/01/21 23:05 98.2 F 87 18 103/52 L 97 11/02/21 03:07 97.5 F L 80 18 68/55 L 98 11/01/21 22:00 79 15 98 11/01/21 22:00 130/63 11/01/21 22:02 11/01/21 21:30 79 12 99 11/01/21 21:00 77 12 99 11/01/21 21:00 115/61 11/01/21 20:30 74 12 99 11/01/21 20:00 72 14 122/56 L 100 11/01/21 17:39 72 20 129/64 98 11/01/21 17:00 75 20 132/72 98 O2 Del Method 11/02/21 15:37 11/02/21 15:19 Room Air 11/02/21 14:50 11/02/21 14:20 11/02/21 14:02 11/02/21 13:15 11/02/21 03:40 Room Air 11/02/21 07:00 Room Air 11/02/21 07:09 11/01/21 23:05 11/01/21 23:05 Room Air 11/02/21 03:07 Room Air 11/01/21 22:00 Room Air 11/01/21 22:00 11/01/21 22:02 Room Air 11/01/21 21:30 Room Air 11/01/21 21:00 Room Air 11/01/21 21:00 11/01/21 20:30 Room Air 11/01/21 20:00 Room Air 11/01/21 17:39 Room Air 11/01/21 17:00 Transfer of Care Handoff Completed per policy Notes Mental Status: alert / awake / arousable and participated in evaluation Patient Amnestic to Procedure: Yes Nausea / Vomiting: adequately controlled Pain: adequately controlled Airway Patency, RR, SpO2: stable & adequate BP & HR: stable & adequate Hydration State: stable & adequate Anesthetic Complications: no major complications apparent and Pt Satisfied with anesthetic care
--- NOTE | 2021-11-02 17:11 | Hospitalist Progress Note ---
Date of Service November 02, 2021 Assessment & Plan (1) GIB (gastrointestinal bleeding): Plan: Bhavani is an 86-year-old female with a past medical history of heart failure with reduced ejection fraction, hyperlipidemia, hypertension, and CVA who presents with melena consistent with upper GI bleed. Records are from [facility] system, attempting to obtain from reconciliation. Unavailable to CM in ER. Med list obtained from patient. GI bleed Transfused units packed red blood cells plan for upper endoscopy today Continue PPI gtt. With melena LENS GRINDER ROUGH GI consulted, recommend EGD Heart failure with reduced ejection fraction Patient on Entresto LENS GRINDER ROUGH Echo not available in system, attempt to obtain records Patient is not volume overloaded, continue to hold Bumex Metoprolol 12.5 mg twice daily held to prevent beta-hawa withdrawal, hold for blood pressure less than 100 Plavix temporarily held in the setting of bleeding History of CVA Plavix held for bleeding No residual deficits per patient. Denies history of DM No CKD DVT prophylaxis: SCDs, no pharmacal prophylaxis in the setting of bleeding Diet: N.p.o. pending GI eval Disposition: Medical telemetry monitoring while bleeding CODE STATUS: Full code (2) HTN (hypertension): (3) Aortic insufficiency: (4) CVA (cerebral vascular accident): (5) HFrEF (heart failure with reduced ejection fraction): Admission and Anticipated Discharge Date Admission Date: November 01, 2021 Subjective pt is pale and weak, no further melena but did have some earlier, no abdominal pain nausea or vomiting Review of Systems Review of Systems: Mild distress and moderate fatigue no headache, no visual changes no speech or swallowing issues no chest pain, pressure or palpitations no shortness of breath, cough or wheezes no abdominal pain, nausea or vomiting, melena no dysuria, hematuria or frequency no focal joint pain or swelling no back pain, CVA tenderness or radicular pain no bruising, bleeding or rashes no focal signs of weakness or numbness or altered sensation no complaints of anxiety or depression.. Physical Exam Physical Exam: The patient appeared well nourished and normally developed. She looked and appeared obviously pale Vital signs as documented. Head exam is normocephalic atraumatic Neck is without JVD, thyromegaly, or carotid bruits. Lungs are clear to auscultation, no focal loss of breath sounds Cardiac exam, Rhythm is regular.. No murmurs, rubs or gallops. Abdominal exam reveals normal bowel sounds, soft non tender, no masses Extremities are nonedematous and both pedal pulses are present Neurologic exam is alert and oriented, no focal loss of strength or sensation Skin is without bruises or rashes Psychologically is without concerns for anxiety or depression.. Results & Data Results & Data ([facility]) Vital Signs (Past 12 Hours) Vital Signs Temp Pulse Pulse Resp BP BP Pulse Ox 11/02/21 16:43 97.3 F L 81 16 157/76 H 11/02/21 15:48 68 16 121/71 98 11/02/21 15:37 97.9 F 79 18 98/62 L 99 11/02/21 15:19 76 18 98/51 L 95 11/02/21 14:50 97.7 F 82 16 133/82 11/02/21 14:20 99.0 F 87 16 133/85 11/02/21 14:02 98.1 F 80 16 134/76 99 11/02/21 13:15 97.5 F L 82 16 142/85 H 11/02/21 07:00 97.9 F 74 18 97/63 L 100 11/02/21 07:09 70 O2 Del Method 11/02/21 16:43 11/02/21 15:48 Room Air 11/02/21 15:37 11/02/21 15:19 Room Air 11/02/21 14:50 11/02/21 14:20 11/02/21 14:02 11/02/21 13:15 11/02/21 07:00 Room Air 11/02/21 07:09 PG Care Time/CCT Total # of Minutes Spent Total Time Spent with Patient: Total time spent is greater than 50% in coordination of care (as documented) at patient's floor/unit and/or counseling patient: Coding Level of Care Code 67089 Subseq Hosp Care Lvl 3 Diagnoses GIB (gastrointestinal bleeding) K92.2 HTN (hypertension) I10 Aortic insufficiency I35.1 CVA (cerebral vascular accident) I63.9 HFrEF (heart failure with reduced ejection fraction) I50.20
[2021-11-03] MEDS: PANTOprazole 40 MG in DEXTROSE 5% 100 ML IV SCH ×3 (02:30→11:02)
[2021-11-03] MEDS: NSS + 20MEQ KCL 20 MEQ/1,000 ML BAG IV SCH ×2 (08:06→14:42)
[2021-11-03 08:19] LABS: BUN Creatinine Ratio 21.3 (10-20); Calcium 7.4 mg/dl (8.5-10.1); Creatinine Clr Calc Pharmacy 37.1 ml/min; Est GFR (African American) 63.2 ml/min; Est GFR (Non-African American) 54.5 ml/min; Potassium 3.9 mmol/L (3.5-5.1)
[2021-11-03 08:30] LABS: Hemoglobin 9.8 g/dl (12.0-16.0); Mean Corpuscular Hemoglobin 31.8 pg (25.0-34.0); Mean Corpuscular Hgb Conc 33.8 g/dL (32.0-36.0); Mean Corpuscular Volume 94.2 fL (80.0-100.0); Mean Platelet Volume 10.7 fL (9.4-12.3); Platelet Count 158 K/uL (130-400); RDW Coefficient of Variation 14.5 % (11.5-14.5); Red Blood Count 3.08 M/uL (3.93-5.22); White Blood Count 4.41 K/ul (4.8-10.8)
--- NOTE | 2021-11-03 09:33 | Communication Note ---
Date of Service: November 03, 2021 no further dark stools. no bright red blood per rectum. hgb improved from 6.8 to 9.8. she otherwise feels well from GI standpoint. she typically follows with [facility] for GI care and can follow up with them as an outpatient.
[2021-11-03] MEDS ORDERED: PANTOprazole 40 MG TAB PO SCH (11:00)
--- NOTE | 2021-11-03 20:32 | Discharge Summary ---
Date of Service November 03, 2021 Admission HPI Per Admitting Provider Bhavani is an 86-year-old female with a past medical history of hypertension, CVA on Plavix, and no known prior ulcers who presents with bright red blood per rectum with progression to melena suspicious for upper GI bleed had very loose BMs. Progressively over the next few days had worsening bright red blood in her bowel movements, and then BMs because dark red then black/tarry. Today BMs very dark brown again. She has had increasing lightheadedness/dizziness. No chest pain, no chest pressure. BP has been lower than normal without taking her BP medications. No shortness of breath. No abdominal pain, no nausea, vomiting. Has had palpitations/heart racing. NO hx of problems with ulcers/PUD/GERD. She does note that she has a sensitive stomach, and was previous on aspirin and was concerned about developing ulcers on either aspirin or her Plavix. On Plaavix for a stroke in 2018. No residual stroke deficits. Medications per patient: Bumex 1mg daily KCL 20meq qd Plavix 75mg QD MTP 12,5mg BID tartrate Colesevelam 625 3x/w entresto 49-51 BID Denies any NSAID use. Colonoscopy in 2006 and 2017, some polyps removed. Otherwise normal per patient open heart surgery in 2015 for a valve replacement Medical History: Reviewed Medications: Reviewed Surgical History: Reviewed Allergies: Reviewed Social History: Tobacco use, no regular alcohol use. Denies recreational drug use Code Status: Full code Principal Diagnosis Acute blood loss anemia status post 2 units packed red blood cells GI bleed suspect lower GI bleed Diascopy negative for active upper GI bleeding Discharge Exam The patient appeared stable Vital signs as documented. Neurologic exam is alert and oriented, no focal loss of strength or sensation Skin is without bruises or rashes color is much better Psychologically is without concerns for anxiety or depression. Discharge Data Allergies Allergy/AdvReac Type Severity Reaction Status Date / Time clindamycin Allergy Unknown Unverified 11/01/21 20:05 erythromycin base Allergy Unknown Unverified 11/01/21 20:06 [id number] Reductase Allergy Unknown Unverified 11/01/21 20:02 Inhibitor Consultations 11/01/21 18:23 ED Decision to Admit Stat 11/01/21 22:41 Consult Gastroenterology Routine Procedures Performed Operation Date: 11/02/21 16:15 Actual Procedures p Esophagogastroduodenoscopy - Kalen Saravia MD Ordered Studies 11/01/21 12:19 CT abd pelvis IV con only Stat Hospital Course (1) GIB (gastrointestinal bleeding): Bhavani is an 86-year-old female with a past medical history of heart failure with reduced ejection fraction, hyperlipidemia, hypertension, and CVA who presents with melena consistent with upper GI bleed. Records are from [facility], attempting to obtain from reconciliation. Unavailable to CM in ER. Med list obtained from patient. GI bleed Transfused units packed red blood cells plan for upper endoscopy 11/02/2021 No active source of bleeding seen no upper endoscopic findings of active bleeding suspect diverticular bleed which should be self-contained no further need for PPI Heart failure with reduced ejection fraction We will resume Entresto and Bumex Metoprolol continue metoprolol. Plavix recommend to start 1 week after symptoms began which will be 05 November History of CVA Plavix will resume November 05 No residual deficits per patient. Denies history of DM No CKD CODE STATUS: Full code (2) HTN (hypertension): (3) Aortic insufficiency: (4) CVA (cerebral vascular accident): (5) HFrEF (heart failure with reduced ejection fraction): Total Time Total Time Spent Total Time Spent (In Minutes): It required greater than 30 minutes to prepare this patient for discharge Discharge Plan Discharge Items Patient Disposition: Home - Self-Care Reason For Visit: GIB Discharge Diagnosis: lower gi bleed Activity: Resume your previous activity Non-emergency contact: Primary Care Provider Call non-emergency contact if: your symptoms worsen Follow-up/Referrals: Kailee Gatica MD [Primary Care Provider] - 11/11/21 1:50 pm (Appointment with MARY Buckley [id number] [place] [address]) Diet: Low Sodium (2gm) Addtl Attending Provider Instructions: please have a good diet and hydration, consider a muyltiple vitamin a day follow up with your primary care doctor in one week and consider follow up wiht GI medicine if needed restart your plavix on 11/05/21 Pending Studies at Discharge: No Stand-Alone Forms: My [facility] [employer], Smoking Cessation Medications and DC Order Prescriptions: Continued bumetanide 1 mg tablet 1 mg PO DAILY potassium chloride 20 mEq tablet extended release 20 meq PO DAILY clopidogrel 75 mg tablet 75 mg PO DAILY metoprolol tartrate 25 mg tablet 25 mg PO DAILY fish oil-dha-epa 1,200-144-216 mg Capsule 1 cap PO DAILY PreserVision AREDS-2 250-90-40-1 mg Capsule 1 cap PO DAILY calcium carbonate-vitamin D3 600 mg-5 mcg (200 unit) Tablet 1 tab PO DAILY Probiotic 10 billion cell Capsule 10,000 mmu cells PO DAILY Entresto 24-26 mg tablet 1 tab PO BID colesevelam 625 mg Tablet 625 mg PO [id number] Discharge Orders: Discharge Order (Routine); Ordered 11/03/21 Ordered By: Margarito Mcneill Admission Data Admit Date/Time: 11/01/21 18:58 Attending Provider: Margarito Mcneill Admit Provider: Alexander Coffman Primary Care Provider: Kailee Gatica Other Providers: Alexander Coffman ; Branden Gaffney Other Interventions: Discharge Summary Assessment (RN) Last Done: 11/03/21 14:56 Coding Level of Care Code D/C DAY MANAGEMENT >30 MINS Diagnoses GIB (gastrointestinal bleeding) K92.2 HTN (hypertension) I10 Aortic insufficiency I35.1 CVA (cerebral vascular accident) I63.9 HFrEF (heart failure with reduced ejection fraction) I50.20
== END 2021-11-03 16:05 | disposition home or self-care (01) | DRG 378 ==
LOC: ED 11:02 → SUATTDRO 18:58 → 2N 18:58
DX: Z79.02 Long term (current) use of antithrombotics/antiplatelets; K57.93 Diverticulitis of intestine, part unspecified, without perforation or abscess with bleeding; I11.0 Hypertensive heart disease with heart failure; Z86.73 Personal history of transient ischemic attack (TIA), and cerebral infarction without residual deficits; I50.22 Chronic systolic (congestive) heart failure; D62 Acute posthemorrhagic anemia; I35.1 Nonrheumatic aortic (valve) insufficiency; Z88.1 Allergy status to other antibiotic agents